=== PATIENT | female | born 1945 | race Caucasian/White ===

== ENCOUNTER 2017-11-28 17:48 | Inpatient (IN) ==
[2017-11-28 18:41] LABS: Basophils # 0.1 K/mcL (0.0-0.2); Basophils % 0.8 %; Eosinophils % 0.5 %; Hematocrit 36.1 % (35.3-44.9); Hemoglobin 11.5 g/dL (11.5-15.4); Immature Granulocytes % 0.3 % (0-4); Lymphocytes # 2.4 K/mcL (0.6-4.6); Lymphocytes % 32.2 %; Mean Corpuscular HGB Conc 31.9 g/dL (31.6-35.5); Mean Corpuscular Hemoglobin 27.8 pg (28.0-33.3); Mean Corpuscular Volume 87.4 fL (83.0-100.0); Mean Platelet Volume 10.9 fL (9.4-12.4); Monocytes # 0.5 K/mcL (0.0-1.3); Monocytes % 7.1 %; Neutrophils # 4.4 K/mcL (1.6-8.9); Platelet Count 362 K/mcL (140-400); Red Blood Count 4.13 M/mcL (3.82-4.97); Red Cell Distribution Width 13.8 % (11.5-14.5); Segmented Neutrophils % 59.1 %
[2017-11-28 19:00] LABS: Albumin 4.2 g/dL (3.5-5.7); Albumin/Globulin Ratio 1.6 (1.1-2.2); Bilirubin,Total 0.5 mg/dL (0.3-1.0); Calcium 10.3 mg/dL (8.6-10.3); Globulin 2.7 g/dL (2.4-3.5); Potassium 3.8 mEq/L (3.5-5.1); Total Protein 6.9 g/dL (6.4-8.9)
[2017-11-28] MEDS ORDERED: MetroNIDAZOLE 500 MG/100 ML 500 MG/100 ML BAG IVPB ONE (20:14)
[2017-11-28] MEDS ORDERED: Levofloxacin 750 MG/150 ML 750 MG/150 ML BAG IVPB ONE (20:14)
--- NOTE | 2017-11-28 20:32 | Emergency Department Note ---
Disposition Clinical Impression: Cellulitis Qualifiers: Site of cellulitis: extremity Site of cellulitis of extremity: lower extremity Laterality: left Qualified Code(s): L03.116 - Cellulitis of left lower limb Disposition: Admitted As Inpatient Condition: Good Referrals: Emiliano Churchill DO [Primary Care Provider] - Forms: ED Satisfaction Letter Time of Disposition: 22:28 General Adult HPI - General Chief complaint: ED Extremity Problem,Nontraumatic Stated complaint: celluitis Left Leg / L foot, sent by PCP Time Seen by Provider: 11/28/17 19:36 Source: patient Limitations: no limitations Nursing Notes Reviewed: Yes Vital Signs Reviewed: Yes - History of Present Illness HPI Narrative: Patient is a 72-year-old female that presents the emergency department with cellulitis the left lower extremity. She was sent here by her primary care provider for admission for IV antibiotics. The patient did have an outpatient CT scan, x-ray and ultrasound the left lower extremity which did not show evidence of DVT or osteomyelitis but did show evidence of possible cellulitis. Patient states that she has been on clindamycin and has failed outpatient therapy. She states that her symptoms of been ongoing for the past 3 weeks and her leg is progressively gotten more swollen and red. Patient states that the leg is somewhat painful at times. She denies any chest pain, shortness of breath abdominal pain, fever chills or any other symptoms at this time. Pain Scale: 0 - Related Data Home Medications Medication Instructions Recorded Confirmed Atorvastatin [Lipitor] 40 mg PO HS 11/28/17 11/28/17 Calcium Carb, Citrate/Vit D3 1 tab PO DAILY 11/28/17 11/28/17 [Calcium + D3 ER Tablet] Cholecalciferol (D-3) [Vitamin D] 2,000 unit PO DAILY 11/28/17 11/28/17 Clindamycin HCl [Clindamycin HCl] 300 mg PO Q6H 11/28/17 11/28/17 Gabapentin [Neurontin] 300 mg PO TID 11/28/17 11/28/17 Losartan Potassium [Cozaar] 100 mg PO DAILY 11/28/17 11/28/17 Mv-Mn/FA/Vit K1/Lycop/Lut/Zeax 1 tab PO DAILY 11/28/17 11/28/17 [Ocuvite Eye + Multi Tablet] Omeprazole [PriLOSEC] 20 mg PO DAILY 11/28/17 11/28/17 Timolol Maleate 0.5% [Timolol 1 drop OP DAILY 11/28/17 11/28/17 Maleate 0.5%] amLODIPine [Norvasc] 5 mg PO DAILY 11/28/17 11/28/17 hydrOXYzine HCl [Hydroxyzine HCl] 25 mg PO Q8H PRN 11/28/17 11/28/17 Allergies Allergy/AdvReac Type Severity Reaction Status Date / Time No Known Allergies Allergy Verified 11/28/17 17:54 All systems ED: reviewed and negative except as stated. Constitutional: Denies: fever, chills Cardiovascular: Denies: chest pain Respiratory: Denies: dyspnea Gastrointestinal: Denies: abdominal pain, nausea, vomiting Genitourinary: Denies: urgency, dysuria, frequency Integumentary: Reports: other (redness of the right lower extremity ) Past Medical History - Past Medical History Medical history: Reports: hyperlipidemia, hypertension Surgical history: Reports: orthopedic, other Psychiatric history: Reports: no psych history - Social History Smoking Status: Never smoker Smokeless Tobacco Status: No Alcohol use: Reports: none Drug use: Reports: none Physical Exam - General Limitations: no limitations General appearance: alert, in no apparent distress - Head Head exam: atraumatic, normocephalic - Eye Eye exam: Present: normal appearance, EOMI - Neck Neck exam: Present: normal inspection, full ROM, trachea midline - Respiratory Respiratory exam: Present: normal lung sounds bilaterally. Absent: respiratory distress, wheezes - Cardiovascular Cardiovascular exam: Present: regular rate, normal rhythm, normal heart sounds, +S1, +S2 - Abdominal Exam Abdominal exam: Present: soft, Non-Tender, normal bowel sounds - Extremities Exam Extremities exam: Present: other (Patient has swelling in bilateral lower extremities however the swelling on the left lower extremity is worse and is erythematous. Patient also states that it is painful to palpation.) - Neurological Exam Neurological exam: Present: alert, oriented X3 - Psychiatric Psychiatric exam: Present: normal affect, normal mood - Skin Skin exam: Present: warm, erythema Course Vital Signs Temperature 98.1 F 11/28/17 17:54 Pulse Rate 97 11/28/17 17:54 Respiratory Rate 20 11/28/17 17:54 Blood Pressure 164/78 11/28/17 17:54 O2 Sat by Pulse Oximetry 98 11/28/17 17:54 Temperature 98.1 F 11/28/17 17:54 Pulse Rate 97 11/28/17 17:54 Respiratory Rate 20 11/28/17 17:54 Blood Pressure 164/78 11/28/17 17:54 O2 Sat by Pulse Oximetry 98 11/28/17 17:54 Oxygen Delivery Oxygen Delivery Room Air Medical Decision Making - MDM Narrative Medical decision making narrative: Due to the patient having a recent CT scan, x-rays and ultrasound the left lower extremity do not feel it is necessary to repeat these as they were just done yesterday. These imaging reports were reviewed. Per radiology read there is not an underlying osseous abnormality but there is evidence of cellulitis. The patient was sent here to the emergency department by her primary care provider for admission to the hospital for antibiotic therapy. We will start the patient on vancomycin, Flagyl and Levaquin. I called and spoke with the hospice noted except the patient their service. The patient will be admitted to the hospital at this time for further evaluation and management. - Lab Data Lab results reviewed: Yes I reviewed the patient's lab results. Result diagrams: 11/28/17 18:30 11/28/17 18:30 Lab Results 11/28/17 11/28/17 Range/Units 18:30 18:30 WBC 7.5 (4.3-11.1) K/mcL RBC 4.13 (3.82-4.97) M/mcL Hgb 11.5 (11.5-15.4) g/dL Hct 36.1 (35.3-44.9) % MCV 87.4 (83.0-100.0) fL MCH 27.8 L (28.0-33.3) pg MCHC 31.9 (31.6-35.5) g/dL RDW 13.8 (11.5-14.5) % Plt Count 362 (140-400) K/mcL MPV 10.9 (9.4-12.4) fL Immature Gran % 0.3 (0-4) % Seg Neutrophils % 59.1 % Lymphocytes % 32.2 % Monocytes % 7.1 % Eosinophils % 0.5 % Basophils % 0.8 % Neutrophils # 4.4 (1.6-8.9) K/mcL Lymphocytes # 2.4 (0.6-4.6) K/mcL Monocytes # 0.5 (0.0-1.3) K/mcL Eosinophils # 0.0 (0.0-0.6) K/mcL Basophils # 0.1 (0.0-0.2) K/mcL Sodium 138 (136-145) mEq/L Potassium 3.8 (3.5-5.1) mEq/L Chloride 102 (98-107) mEq/L Carbon Dioxide 29 (23-29) mEq/L BUN 14 (8-23) mg/dL Creatinine 1.16 (0.60-1.20) mg/dL Est GFR ( Amer) 56 L (> 60) Est GFR (Non-Af Amer) 46 L (> 60) BUN/Creatinine Ratio 12 (6-26) Glucose 195 H (70-105) mg/dL Calculated Osmolality 292 (280-300) Calcium 10.3 (8.6-10.3) mg/dL Total Bilirubin 0.5 (0.3-1.0) mg/dL AST 21 (13-39) Units/L ALT 13 (7-52) Units/L Alkaline Phosphatase 112 H (34-104) Units/L Serum Total Protein 6.9 (6.4-8.9) g/dL Albumin 4.2 (3.5-5.7) g/dL Globulin 2.7 (2.4-3.5) g/dL Albumin/Globulin Ratio 1.6 (1.1-2.2)
--- NOTE | 2017-11-28 20:46 | Emergency Department Note ---
Disposition Clinical Impression: Cellulitis Qualifiers: Site of cellulitis: extremity Site of cellulitis of extremity: lower extremity Laterality: left Qualified Code(s): L03.116 - Cellulitis of left lower limb Disposition: Admitted As Inpatient Referrals: Emiliano Churchill DO [Primary Care Provider] - Forms: ED Satisfaction Letter General Adult HPI - General Chief complaint: ED Extremity Problem,Nontraumatic Stated complaint: celluitis Left Leg / L foot, sent by PCP Time Seen by Provider: 11/28/17 19:36 Source: patient Limitations: no limitations - History of Present Illness Pain Scale: 0 - Related Data Home Medications Medication Instructions Recorded Confirmed Atorvastatin [Lipitor] 40 mg PO HS 11/28/17 11/28/17 Calcium Carb, Citrate/Vit D3 1 tab PO DAILY 11/28/17 11/28/17 [Calcium + D3 ER Tablet] Cholecalciferol (D-3) [Vitamin D] 2,000 unit PO DAILY 11/28/17 11/28/17 Clindamycin HCl [Clindamycin HCl] 300 mg PO Q6H 11/28/17 11/28/17 Gabapentin [Neurontin] 300 mg PO TID 11/28/17 11/28/17 Losartan Potassium [Cozaar] 100 mg PO DAILY 11/28/17 11/28/17 Mv-Mn/FA/Vit K1/Lycop/Lut/Zeax 1 tab PO DAILY 11/28/17 11/28/17 [Ocuvite Eye + Multi Tablet] Omeprazole [PriLOSEC] 20 mg PO DAILY 11/28/17 11/28/17 Timolol Maleate 0.5% [Timolol 1 drop OP DAILY 11/28/17 11/28/17 Maleate 0.5%] amLODIPine [Norvasc] 5 mg PO DAILY 11/28/17 11/28/17 hydrOXYzine HCl [Hydroxyzine HCl] 25 mg PO Q8H PRN 11/28/17 11/28/17 Allergies Allergy/AdvReac Type Severity Reaction Status Date / Time No Known Allergies Allergy Verified 11/28/17 17:54 Constitutional: Denies: fever, chills Cardiovascular: Denies: chest pain Respiratory: Denies: dyspnea Gastrointestinal: Denies: abdominal pain, nausea, vomiting Genitourinary: Denies: urgency, dysuria, frequency Integumentary: Reports: other (redness of the right lower extremity ) Past Medical History - Past Medical History Medical history: Reports: hyperlipidemia, hypertension Surgical history: Reports: orthopedic, other Psychiatric history: Reports: no psych history - Social History Smoking Status: Never smoker Smokeless Tobacco Status: No Alcohol use: Reports: none Drug use: Reports: none Physical Exam - General Limitations: no limitations General appearance: alert, in no apparent distress Course Vital Signs Temperature 98.1 F 11/28/17 17:54 Pulse Rate 97 11/28/17 17:54 Respiratory Rate 20 11/28/17 17:54 Blood Pressure 164/78 11/28/17 17:54 O2 Sat by Pulse Oximetry 98 11/28/17 17:54 Temperature 98.1 F 11/28/17 17:54 Pulse Rate 97 11/28/17 17:54 Respiratory Rate 20 11/28/17 17:54 Blood Pressure 164/78 11/28/17 17:54 O2 Sat by Pulse Oximetry 98 11/28/17 17:54 Oxygen Delivery Oxygen Delivery Room Air Medical Decision Making - Lab Data Result diagrams: 11/28/17 18:30 11/28/17 18:30 Lab Results 11/28/17 11/28/17 Range/Units 18:30 18:30 WBC 7.5 (4.3-11.1) K/mcL RBC 4.13 (3.82-4.97) M/mcL Hgb 11.5 (11.5-15.4) g/dL Hct 36.1 (35.3-44.9) % MCV 87.4 (83.0-100.0) fL MCH 27.8 L (28.0-33.3) pg MCHC 31.9 (31.6-35.5) g/dL RDW 13.8 (11.5-14.5) % Plt Count 362 (140-400) K/mcL MPV 10.9 (9.4-12.4) fL Immature Gran % 0.3 (0-4) % Seg Neutrophils % 59.1 % Lymphocytes % 32.2 % Monocytes % 7.1 % Eosinophils % 0.5 % Basophils % 0.8 % Neutrophils # 4.4 (1.6-8.9) K/mcL Lymphocytes # 2.4 (0.6-4.6) K/mcL Monocytes # 0.5 (0.0-1.3) K/mcL Eosinophils # 0.0 (0.0-0.6) K/mcL Basophils # 0.1 (0.0-0.2) K/mcL Sodium 138 (136-145) mEq/L Potassium 3.8 (3.5-5.1) mEq/L Chloride 102 (98-107) mEq/L Carbon Dioxide 29 (23-29) mEq/L BUN 14 (8-23) mg/dL Creatinine 1.16 (0.60-1.20) mg/dL Est GFR ( Amer) 56 L (> 60) Est GFR (Non-Af Amer) 46 L (> 60) BUN/Creatinine Ratio 12 (6-26) Glucose 195 H (70-105) mg/dL Calculated Osmolality 292 (280-300) Calcium 10.3 (8.6-10.3) mg/dL Total Bilirubin 0.5 (0.3-1.0) mg/dL AST 21 (13-39) Units/L ALT 13 (7-52) Units/L Alkaline Phosphatase 112 H (34-104) Units/L Serum Total Protein 6.9 (6.4-8.9) g/dL Albumin 4.2 (3.5-5.7) g/dL Globulin 2.7 (2.4-3.5) g/dL Albumin/Globulin Ratio 1.6 (1.1-2.2) Attestation Statement - Attestation Attestation: I examined this patient and my medical decision-making was reviewed with the Resident Physician. I agree with the documented findings, disposition and treatment plan as described except to the extent set forth below. 72 year old female prsentse to the Ed with complants of left foot cellulitis and had an outpatinet Ct/US/XR of her left foot which confirms diangosis and has failed outpatinet therapy for clinda. We terri admit to medicine
[2017-11-29] MEDS ORDERED: Naloxone 0.4 MG/ML INJ IVP PRN (05:13)
[2017-11-29] MEDS ORDERED: Acetaminophen 325 MG TABLET PO PRN (05:13)
[2017-11-29] MEDS ORDERED: hydrOXYzine pamoate 25 MG CAPSULE PO PRN (05:21)
--- NOTE | 2017-11-29 06:22 | Internal Med History&Physical ---
Date of Encounter: 11/29/17 Time of Encounter: 04:00 Internal Medicine - H&P: HPI Chief complaint: Left leg swelling Admitted From: Home Plans for Post Hospital Care: Home History of present illness: Ms. Smith is a 72 year old female present to ER for left leg swelling for 3 weeks. Past medical history is significant for hypertension, hyperlipidemia, chronic back pain. Patient said she has left lower leg swelling and the pain for 3 weeks. Patient had Doppler venous test on November 20, which shows negative for DVT. Later she also had CT of left lower leg, shows generalized swelling consider cellulitis. Patient was treated with clindamycin by mouth as outpatient. The swelling and pain does not improve after treatment. Patient denies numbness. The patient denies a fever. Patient denies history of surgery or injury. Patient denies shortness of breath or chest pain. She has no recent travel or immobilization. Patient was admitted as cellulitis failed outpatient treatment. Past Med Surg Social Fam HX - Past Medical History Medical history: hyperlipidemia, hypertension Psychiatric history: no psych history - Past Surgical History Surgical History: orthopedic, other - Social History Smoking Status: Never smoker Smokeless Tobacco Status: No Alcohol use: none Drug use: none - Family History Mother Living Status: Hx Family Neurologic Disorders: Yes (alzheimers) Internal Medicine - H&P: Meds Atorvastatin [Lipitor] 40 mg PO HS 11/28/17 [History] Calcium Carb, Citrate/Vit D3 [Calcium + D3 ER Tablet] 1 tab PO DAILY 11/28/17 [ History] Cholecalciferol (D-3) [Vitamin D] 2,000 unit PO DAILY 11/28/17 [History] Clindamycin HCl [Clindamycin HCl] 300 mg PO Q6H 11/28/17 [History] Gabapentin [Neurontin] 300 mg PO TID 11/28/17 [History] Losartan Potassium [Cozaar] 100 mg PO DAILY 11/28/17 [History] Mv-Mn/FA/Vit K1/Lycop/Lut/Zeax [Ocuvite Eye + Multi Tablet] 1 tab PO DAILY 11/28 [History] Omeprazole [PriLOSEC] 20 mg PO DAILY 11/28/17 [History] Timolol Maleate 0.5% [Timolol Maleate 0.5%] 1 drop OP DAILY 11/28/17 [History] amLODIPine [Norvasc] 5 mg PO DAILY 11/28/17 [History] hydrOXYzine HCl [Hydroxyzine HCl] 25 mg PO Q8H PRN 11/28/17 [History] 3 Allergy/AdvReac Type Severity Reaction Status Date / Time No Known Allergies Allergy Verified 11/28/17 17:54 All Systems PM: A 10-system review of systems was performed and is negative for pertinent findings except as documented above in the HPI. - Constitutional Vitals: Temp Pulse Resp BP Pulse Ox 98.0 F 88 16 148/76 94 11/29/17 01:06 11/29/17 01:06 11/29/17 01:06 11/29/17 01:06 11/29/17 01:06 General appearance: Present: A&O X 3, no acute distress, answers questions appropriately - Head Head exam: Present: atraumatic, normocephalic - Eye Eye exam: Present: PERRL, conjuntiva pink, sclera anicteric Pupils: Present: PERRL - Neck Neck exam general surgery: Present: supple, trachea midline. Absent: lymphadenopathy - Respiratory Respiratory exam: Present: CTAB. Absent: accessory muscle use, rales, rhonchi, wheezes - Cardiovascular Cardiovascular exam: Present: RRR, +S1, +S2. Absent: diastolic murmur, gallop, rubs, systolic murmur - GI/Abdominal GI/Abdominal exam: Present: normal bowel sounds, soft, no peritoneal signs. Absent: distended, tenderness - Extremities Exam Extremities exam: Present: pedal edema (Left lower leg swelling with tenderness. No skin redness or warmth), warm, radial pulses palpable and symmetrical. Absent: calf tenderness, cyanotic - Neurological Exam Neurological exam: Present: CN II-XII intact, oriented X3, no focal deficits. Absent: pronater drift, facial droop, speech deficit - Skin Skin exam: Present: dry, intact Internal Med - H&P Results - Labs CBC & Chem 7: 11/28/17 18:30 11/28/17 18:30 - Assessment and plan (1) Edema of left lower extremity Current Visit: Yes Status: Acute Assessment and plan: Etiology is undetermined. Patient had DVT test on November 20, which is negative. Will further repeated DVT exam. Patient is on amlodipine, which may account for peripheral edema but usually it is bilateral. - We will elevate left leg - Hold amlodipine - Treat as cellulitis at this point - Repeat Doppler venous of left lower extremity (2) Hypertension Current Visit: Yes Status: Acute Assessment and plan: Continue home medications. Hold amlodipine Qualifiers: Hypertension type: essential hypertension Qualified Code(s): I10 - Essential (primary) hypertension (3) Hyperlipidemia Current Visit: Yes Status: Acute Assessment and plan: Continue home medications Qualifiers: Hyperlipidemia type: pure hypercholesterolemia Qualified Code(s): E78.00 - Pure hypercholesterolemia, unspecified; E78.0 - Pure hypercholesterolemia (4) DVT prophylaxis Current Visit: Yes Status: Acute Assessment and plan: Heparin subcutaneously (5) Cellulitis Current Visit: Yes Status: Acute Assessment and plan: CT shows cellulitis. Patient failed by mouth clindamycin treatment. Will place patient on Vanco and Rocephin. Qualifiers: Site of cellulitis: extremity Site of cellulitis of extremity: lower extremity Laterality: left Qualified Code(s): L03.116 - Cellulitis of left lower limb - Time Spent With Patient Total time spent is greater than 50% in coordination of care (as documented) at patient's floor/unit and/or counseling patient: 40 minutes Greater than 35 minutes
[2017-11-29] MEDS ORDERED: (Calcium Carb, Citrate/Vit D3 [Calcium + D3 Er Tablet) PO SCH (09:00)
[2017-11-29] MEDS: Cholecalciferol (D-3) 1,000 UNIT TABLET PO SCH (09:19)
[2017-11-29] MEDS: Gabapentin 300 MG CAPSULE PO SCH ×3 (09:19→21:14)
[2017-11-29] MEDS: Multivit/Ca/Min/Fe/FA 1 TAB TABLET PO SCH (09:20)
[2017-11-29] MEDS: cefTRIAXone 1,000 MG in Water for inj. (sterile) 20 ML 10 ML IVP SCH (09:20)
[2017-11-29] MEDS: *HR* Heparin 5,000 UNIT/ML VIAL SQ SCH ×2 (09:21→17:35)
--- NOTE | 2017-11-29 13:48 | Infectious Disease Consult ---
Date of Encounter: 11/29/17 Time of Encounter: 13:41 Assessment and Plan (1) Cellulitis Status: Acute Assessment and plan: Location: LLE. Causative organism: Unclear. Non-purulent. Etiology unclear. The patient did have a fall about three days prior to the onset of her symptoms, but denies any traumatic injury to the skin. She does not appear to have any tinea pedis or venous stasis dermatitis. She does have a remote history of left knee TKA, but does not have any knee pain and the joint does not appear to be effected. CT scan of the LLE completed 11/27/17 showed extensive non-specific subcutaneous edema, most pronounced at the level of the ankle and foot, without an organized drainable fluid collection or acute osseous abnormality. DVT study completed 11/20/17 was negative. No SIRS criteria. Clinically improved per patient report. Continue Vancomycin IV. Pharmacy to dose. Goal trough ~15. Continue Rocephin 2 grams IV daily. Start probiotics. Duration of treatment depends on the clinical picture, but likely 7-10 days, depending on patient response. Will likely be able to transition to PO Bactrim and Levaquin when ready for discharge. Monitor renal function and for drug toxicity and dose-adjust antibiotics. Qualifiers: Site of cellulitis: extremity Site of cellulitis of extremity: lower extremity Laterality: left Qualified Code(s): L03.116 - Cellulitis of left lower limb (2) Hypertension Status: Chronic Qualifiers: Hypertension type: essential hypertension Qualified Code(s): I10 - Essential (primary) hypertension (3) Hyperlipidemia Status: Chronic Qualifiers: Hyperlipidemia type: pure hypercholesterolemia Qualified Code(s): E78.00 - Pure hypercholesterolemia, unspecified; E78.0 - Pure hypercholesterolemia Infectious Disease HPI - Data of Consult Patient: new to practice Consult date: 11/29/17 Requesting Physician: Latha Hodge CNP Primary Care Provider: Emiliano Churchill DO - Consult Narrative Reason for consult: LLE cellulitis History of present illness: Ms. Smith is a 72 year old female with past medical history of hypertension, hyperlipidemia, chronic back pain, and anxiety with remote history of left TKA 3 years ago and right TKA 1 year ago. The patient was noted to the hospital November 28 for left lower extremity cellulitis. We are consulted November 29 for antibiotic recommendations or left lower extremity cellulitis. Briefly, the patient's a 72-year-old female with past medical history as stated above. The patient presented to the hospital with a complaint of 3 weeks of redness, swelling, and pain in the left lower extremity. She states she fell on a and started having symptoms on the following Monday or Monday. She denies any known cuts or scrapes or additional trauma to the affected area. She was seen by her primary care provider on November 20 and had a DVT study that was negative. At that time, she was started on oral clindamycin. She states she was seen for a follow-up on November 24 and thought that her leg was doing a little bit better, but her PCP did not feel that way. She had x-rays of the foot and ankle that showed no acute fractures, but did show nonspecific lucencies within the first metatarsal and calcaneus. He then had a CT scan of the left lower extremity that showed extensive nonspecific subcutaneous edema most pronounced at the level of the ankle and foot without organized drainable fluid collection and no acute osseous abnormality. She was seen by her primary care provider again on Monday and instructed to come to the emergency room for evaluation. Upon arrival, the patient was afebrile. She was mildly tachycardic , but was otherwise hemodynamically stable. Laboratory studies revealed a normal white blood cell count. There was no repeat imaging completed. She was started empirically on vancomycin, Flagyl, and Levaquin and admitted to the hospital for further evaluation. Since admission, the patient has remained afebrile hemodynamically stable. Her antibiotics were switched to vancomycin and Rocephin by the primary team. We have been asked to evaluate and make further recommendations. During my exam today, the patient endorses a history as stated above. She states that she thinks that her leg looks about 50% better and is much less painful. The patient reports that the redness and swelling went from her toes to her mid calf. She denies any fevers or chills or rigors. She denies any congestion, earache, or sore throat. She denies any headache or neck pain or dizziness. She denies any chest pain, shortness of breath, or cough. She denies any nausea, vomiting, diarrhea, or constipation. She denies any abdominal pain, urinary complaints, or appetite changes. She reports chronic lower back pain that has been at baseline. She denies pain except as previously mentioned. She denies any traumatic injuries to the skin that she is aware of. She does have hardware in the left foot and in the bilateral knees from previous surgeries. She denies any oral thrush or new skin lesions. Patient lives at home with her and daughter. She is retired from the hospital. She denies any tobacco, alcohol, or illicit drug use. She denies any recent travel. She denies any exposure to animals. She denies any prolonged exposure to water except for bathing. CC: Latha Hodge, [place] Past Med Surg Social Fam HX - Past Medical History Attestation: Yes The following information was validated with the patient. Source: patient, old records reviewed, nursing notes reviewed Medical history: GERD, hyperlipidemia, hypertension, other (chronic back pain) Psychiatric history: no psych history - Past Surgical History Surgical History: orthopedic, other (Left knee 2014, Right knee 2017, Left foot ORIF) - Social History Smoking Status: Never smoker Smokeless Tobacco Status: No Alcohol use: none Drug use: none Occupational status: retired Current living situation: Home, With Family Activity Level: Independent ambulation Recent Out of Country Travel Within the Last 8 Weeks: No Exposure or Possible Exposure to Illness During Travel: No - Family History Mother Living Status: Hx Family Neurologic Disorders: Yes (alzheimers) Infectious Disease-CN:Meds Atorvastatin [Lipitor] 40 mg PO HS 11/28/17 [History] Calcium Carb, Citrate/Vit D3 [Calcium + D3 ER Tablet] 1 tab PO DAILY 11/28/17 [ History] Cholecalciferol (D-3) [Vitamin D] 2,000 unit PO DAILY 11/28/17 [History] Clindamycin HCl [Clindamycin HCl] 300 mg PO Q6H 11/28/17 [History] Gabapentin [Neurontin] 300 mg PO TID 11/28/17 [History] Losartan Potassium [Cozaar] 100 mg PO DAILY 11/28/17 [History] Mv-Mn/FA/Vit K1/Lycop/Lut/Zeax [Ocuvite Eye + Multi Tablet] 1 tab PO DAILY 11/28 [History] Omeprazole [PriLOSEC] 20 mg PO DAILY 11/28/17 [History] Timolol Maleate 0.5% [Timolol Maleate 0.5%] 1 drop OP DAILY 11/28/17 [History] amLODIPine [Norvasc] 5 mg PO DAILY 11/28/17 [History] hydrOXYzine HCl [Hydroxyzine HCl] 25 mg PO Q8H PRN 11/28/17 [History] 3 Allergy/AdvReac Type Severity Reaction Status Date / Time No Known Allergies Allergy Verified 11/28/17 17:54 All systems: reviewed and no additional remarkable complaints except as stated Exam - Constitutional Vitals: Temp Pulse Resp BP Pulse Ox 97.6 F 92 16 157/82 96 11/29/17 11:00 11/29/17 11:00 11/29/17 11:00 11/29/17 11:00 11/29/17 11:00 General appearance: average body habitus, cooperative, no acute distress - Head Head exam: Present: atraumatic, normal inspection, normocephalic - Eye Eye exam: Present: EOMI, normal appearance, PERRL Pupils: Present: normal accommodation - ENT ENT exam: Present: mucous membranes moist - Neck Neck exam: Present: normal inspection - Respiratory Respiratory exam: Present: CTAB. Absent: rales, respiratory distress, rhonchi, wheezes - Cardiovascular Cardiovascular exam: Present: RRR, +S1, +S2 - GI/Abdominal GI/Abdominal exam: Present: normal bowel sounds, soft. Absent: distended, tenderness - Extremities Exam Extremities exam: Present: joint swelling (Left ankle), pedal edema (1+ LLE, non -pitting), tenderness (Left calf/ankle/foot). Absent: normal inspection (Mild erythema noted to the lower portion of the LLE from mid-calf to the midfoot. Sparing of all five toes noted. No open wounds noted. ) - Neurological Exam Neurological exam: Present: alert, oriented X3, no focal deficits - Psychiatric Psychiatric exam: Present: normal affect, normal mood - Skin Skin exam: Present: dry, intact, normal color, warm Infectious Disease CN: Results - Labs CBC & Chem 7: 11/30/17 03:54 11/30/17 03:54 Consult Discharge Plan - Plan Referrals: Emiliano Churchill DO [Primary Care Provider] - - Attending Attestation I examined this patient and my medical decision-making was reviewed with the Resident Physician. I agree with the documented findings, disposition and treatment plan as described except to the extent set forth below. This is an addendum to original report dictated by Hiral Bob CNP. Please refer to Bibi clark for full detail. Patient is 72-year-old woman with past medical history mentioned below who apparently came in with cellulitis of the left lower extremity. Details of cellulitis on mentioned in the history of present illness below. Patient was treated as an outpatient with no resolution. Patient had no other causative she will symptoms. Patient was admitted started on IV antibiotics including vancomycin and Rocephin and clinically is doing much better. On review of system today patient tells me that she feels great and has no complaints. Patient states that her leg looks so much better since she came in. On physical exam I appreciate an oral thrush but other than that there is some edema of the left lower extremity with no real erythema or warmth to touch. At this point patient is on broad-spectrum antibiotics I did discuss with the hospitalist team, was patient is to be discharge May discharged on Bactrim orally to finish a 10 day course total.
[2017-11-29] MEDS: Lactobacillus 1 EACH CAP.SPRINK PO SCH (15:05)
--- NOTE | 2017-11-29 18:47 | Internal Med Progress Note ---
Date of Encounter: 11/29/17 Time of Encounter: 18:44 - Assessment and plan (1) Cellulitis Current Visit: Yes Status: Acute Assessment and plan: CT shows cellulitis. Patient failed by mouth clindamycin treatment as outpatient. Infectious disease consult it and recommend discharging home tomorrow on Bactrim DS twice a day and Cipro 500 mg by mouth twice a day for 10 days total. Continue on Vanco and Rocephin overnight. Qualifiers: Site of cellulitis: extremity Site of cellulitis of extremity: lower extremity Laterality: left Qualified Code(s): L03.116 - Cellulitis of left lower limb (2) Edema of left lower extremity Current Visit: Yes Status: Acute Assessment and plan: Etiology is undetermined. Patient had Doppler study on November 20, which was negative for DVT. Repeat Doppler study is pending. Patient is on amlodipine, which may account for peripheral edema but usually it is bilateral. - elevate left leg - Hold amlodipine - Treat as cellulitis - Repeat Doppler venous of left lower extremity (3) Hypertension Current Visit: Yes Status: Chronic Assessment and plan: Continue home medications. Hold amlodipine Blood pressure is stable Qualifiers: Hypertension type: essential hypertension Qualified Code(s): I10 - Essential (primary) hypertension (4) Hyperlipidemia Current Visit: Yes Status: Chronic Assessment and plan: Continue statin Qualifiers: Hyperlipidemia type: pure hypercholesterolemia Qualified Code(s): E78.00 - Pure hypercholesterolemia, unspecified; E78.0 - Pure hypercholesterolemia (5) DVT prophylaxis Current Visit: Yes Status: Acute Assessment and plan: Heparin subcut - Time Spent With Patient Total time spent is greater than 50% in coordination of care (as documented) at patient's floor/unit and/or counseling patient: - Subjective Interval history: Patient is up in the room with a steady gait. She has no complaints at this time, denies fever chills chest pain or shortness of breath. She does state that her ankle hurts with palpation. - Constitutional Vitals: Temp Pulse Resp BP Pulse Ox 97.8 F 74 14 151/72 97 11/29/17 15:13 11/29/17 15:13 11/29/17 15:13 11/29/17 15:13 11/29/17 15:13 General appearance: Present: cooperative, A&O X 3, pleasant, no acute distress, answers questions appropriately - Head Head exam: Present: atraumatic, normocephalic - Eye Eye exam: Present: PERRL, conjuntiva pink, sclera anicteric Pupils: Present: PERRL - Neck Neck exam general surgery: Present: supple, trachea midline. Absent: lymphadenopathy - Respiratory Respiratory exam: Present: CTAB. Absent: accessory muscle use, rales, rhonchi, wheezes - Cardiovascular Cardiovascular exam: Present: RRR, +S1, +S2. Absent: diastolic murmur, gallop, rubs, systolic murmur - GI/Abdominal GI/Abdominal exam: Present: normal bowel sounds, soft, no peritoneal signs. Absent: distended, tenderness - Extremities Exam Extremities exam: Present: pedal edema, warm, radial pulses palpable and symmetrical. Absent: calf tenderness, cyanotic - Neurological Exam Neurological exam: Present: CN II-XII intact, oriented X3, no focal deficits. Absent: pronater drift, facial droop, speech deficit - Skin Skin exam: Present: dry, intact, normal color, warm Additional comments: Left lower extremity from the knee down is slightly red and warm to touch no open areas noted. Pulses are present Internal Medicine: Result - Labs CBC & Chem 7: 11/28/17 18:30 11/28/17 18:30 Consult Discharge Plan - Plan Referrals: Emiliano Churchill DO [Primary Care Provider] -
[2017-11-30] MEDS: *HR* Heparin 5,000 UNIT/ML VIAL SQ SCH ×2 (00:18→05:29)
[2017-11-30 04:59] LABS: Basophils % 0.5 %; Eosinophils # 0.1 K/mcL (0.0-0.6); Eosinophils % 0.8 %; Hematocrit 33.9 % (35.3-44.9); Hemoglobin 10.6 g/dL (11.5-15.4); Immature Granulocytes % 0.5 % (0-4); Lymphocytes # 2.6 K/mcL (0.6-4.6); Lymphocytes % 35.3 %; Mean Corpuscular HGB Conc 31.3 g/dL (31.6-35.5); Mean Corpuscular Hemoglobin 27.8 pg (28.0-33.3); Mean Platelet Volume 11.5 fL (9.4-12.4); Monocytes # 0.7 K/mcL (0.0-1.3); Monocytes % 9.2 %; Neutrophils # 3.9 K/mcL (1.6-8.9); Platelet Count 351 K/mcL (140-400); Red Blood Count 3.81 M/mcL (3.82-4.97); Red Cell Distribution Width 14.2 % (11.5-14.5); Segmented Neutrophils % 53.7 %
[2017-11-30 05:16] LABS: BUN/Creatinine Ratio 14 (6-26); Blood Urea Nitrogen 14 mg/dL (8-23); Calcium 9.1 mg/dL (8.6-10.3); Carbon Dioxide 26 mEq/L (23-29); Chloride 109 mEq/L (98-107); Glucose 91 mg/dL (70-105); Magnesium 1.8 mg/dL (1.6-2.6); Osmolality,Calculated 296 (280-300); Potassium 3.6 mEq/L (3.5-5.1); Sodium 143 mEq/L (136-145); eGFR For African Americans > 60 (> 60); eGFR For Non-African Americans 53 (> 60)
[2017-11-30] MEDS: Gabapentin 300 MG CAPSULE PO SCH (08:49)
[2017-11-30] MEDS: Lactobacillus 1 EACH CAP.SPRINK PO SCH (08:49)
[2017-11-30] MEDS: Multivit/Ca/Min/Fe/FA 1 TAB TABLET PO SCH (08:50)
[2017-11-30] MEDS: Cholecalciferol (D-3) 1,000 UNIT TABLET PO SCH (08:50)
[2017-11-30] MEDS: cefTRIAXone 1,000 MG in Water for inj. (sterile) 20 ML 10 ML IVP SCH (08:51)
--- NOTE | 2017-11-30 10:35 | Discharge Summary ---
- NOTES TO OUTPATIENT PROVIDER Notes to Outpatient Provider: F/U with PCP in one week. Discharged on 10 day course of Bactrim DS and Cipro 500 twice a day Date of Encounter: 11/30/17 Time of Encounter: 10:31 - Discharge Diagnosis (1) Cellulitis Priority: Primary Status: Acute Qualifiers: Site of cellulitis: extremity Site of cellulitis of extremity: lower extremity Laterality: left Qualified Code(s): L03.116 - Cellulitis of left lower limb (2) Edema of left lower extremity Priority: Primary Status: Acute (3) Hypertension Priority: Primary Status: Chronic Qualifiers: Hypertension type: essential hypertension Qualified Code(s): I10 - Essential (primary) hypertension (4) Hyperlipidemia Priority: Primary Status: Chronic Qualifiers: Hyperlipidemia type: pure hypercholesterolemia Qualified Code(s): E78.00 - Pure hypercholesterolemia, unspecified; E78.0 - Pure hypercholesterolemia Hospital course: Ms. Smith is a 72 year old female who presented to the ER with 3 weeks of left leg swelling. She had been treated as an outpatient with clindamycin for cellulitis. She also had a Doppler venous study on November 20 was was negative for DVT. Repeat bilateral Doppler exam was negative for DVT on this admission. Infectious disease was consulted and made recommendations for antibiotics on discharge. She will be sent home on Bactrim DS twice a day and Cipro 500 twice a day to complete a 10 day course. She has no white count, no fever and no symptoms of infection. Leg swelling is much improved and redness and tenderness are markedly decreased. Discharge discussed with: patient, nurse, oncology consultant - Time Spent with Patient Total time spent providing and/or coordinating discharge services: Less than 30 minutes - Discharge Medications Prescriptions: Ciprofloxacin HCl [Cipro] 500 mg PO BID 10 Days #20 tablet Sulfamethoxazole/Trimeth DS [Bactrim DS] 1 each PO BID 10 Days #20 tablet Home Medications: Atorvastatin [Lipitor] 40 mg PO HS 11/28/17 [History] Calcium Carb, Citrate/Vit D3 [Calcium + D3 ER Tablet] 1 tab PO DAILY 11/28/17 [ History] Cholecalciferol (D-3) [Vitamin D] 2,000 unit PO DAILY 11/28/17 [History] Clindamycin HCl 300 mg PO Q6H 11/28/17 [History] Gabapentin [Neurontin] 300 mg PO TID 11/28/17 [History] Losartan Potassium [Cozaar] 100 mg PO DAILY 11/28/17 [History] Mv-Mn/FA/Vit K1/Lycop/Lut/Zeax [Ocuvite Eye + Multi Tablet] 1 tab PO DAILY 11/28 [History] Omeprazole [PriLOSEC] 20 mg PO DAILY 11/28/17 [History] Timolol Maleate 0.5% 1 drop OP DAILY 11/28/17 [History] amLODIPine [Norvasc] 5 mg PO DAILY 11/28/17 [History] hydrOXYzine HCl [Hydroxyzine HCl] 25 mg PO Q8H PRN 11/28/17 [History] Ciprofloxacin HCl [Cipro] 500 mg PO BID 10 Days #20 tablet 11/30/17 [Rx] Sulfamethoxazole/Trimeth DS [Bactrim DS] 1 each PO BID 10 Days #20 tablet [Rx] Allergies/Adverse Reactions: 3 Allergy/AdvReac Type Severity Reaction Status Date / Time No Known Allergies Allergy Verified 11/28/17 17:54 Date of admission: 11/29/17 05:13 Primary care physician: Emiliano Churchill DO Consults: 11/29/17 09:44 Consult to Infectious Diseases [CONS] Routine Consulting Provider: Infectious Disease Rosa Reason for Consult: cellulits failed outpatient treatment Time Notified: 09:45 Call Completed: Yes Discharging clinician: Addis Whitney Anticipated date of discharge: 11/30/17 - Constitutional Vitals: Temp Pulse Resp BP Pulse Ox 97.9 F 78 15 144/85 91 11/30/17 06:59 11/30/17 06:59 11/30/17 06:59 11/30/17 06:59 11/30/17 06:59 General appearance: Present: cooperative, A&O X 3, pleasant, no acute distress, answers questions appropriately - Head Head exam: Present: atraumatic, normocephalic - Eye Eye exam: Present: PERRL, conjuntiva pink, sclera anicteric Pupils: Present: PERRL - Neck Neck exam general surgery: Present: supple, trachea midline. Absent: lymphadenopathy - Respiratory Respiratory exam: Present: CTAB. Absent: accessory muscle use, rales, rhonchi, wheezes - Cardiovascular Cardiovascular exam: Present: RRR, +S1, +S2. Absent: diastolic murmur, gallop, rubs, systolic murmur - GI/Abdominal GI/Abdominal exam: Present: normal bowel sounds, soft, no peritoneal signs. Absent: distended, tenderness - Extremities Exam Extremities exam: Present: pedal edema, warm, radial pulses palpable and symmetrical. Absent: calf tenderness, cyanotic Additional comments: Trace pedal edema bilaterally and redness and soreness markedly decreased from exam yesterday. No open areas noted. Good pulses bilaterally - Neurological Exam Neurological exam: Present: CN II-XII intact, oriented X3, no focal deficits. Absent: pronater drift, facial droop, speech deficit - Skin Skin exam: Present: dry, intact, normal color, warm - Patient Status Disposition: Home, Self-Care Condition: Good Functional capacity at discharge: independent ambulation Overall status at discharge: patient is progressing back to baseline - Discharge Instructions Follow Up With: Emiliano Churchill DO [Primary Care Provider] - - Diet and Activity Activity: resume usual activities as tolerated Diet: advance to your usual diet, low fat, low cholesterol
[2017-11-30 10:53] VITALS: BP 159/81
--- NOTE | 2017-11-30 11:48 | Infectious Disease Progress No ---
Date of Encounter: 11/30/17 Time of Encounter: 11:00 - Assessment and Plan (1) Cellulitis Status: Acute Location: LLE. Causative organism: Unclear. Non-purulent. Etiology unclear. The patient did have a fall about three days prior to the onset of her symptoms, but denies any traumatic injury to the skin. She does not appear to have any tinea pedis or venous stasis dermatitis. She does have a remote history of left knee TKA, but does not have any knee pain and the joint does not appear to be effected. CT scan of the LLE completed 11/27/17 showed extensive non-specific subcutaneous edema, most pronounced at the level of the ankle and foot, without an organized drainable fluid collection or acute osseous abnormality. DVT study completed 11/20/17 was negative. No SIRS criteria. Clinically improved per patient report. Continue Vancomycin IV. Pharmacy to dose. Goal trough ~15. Continue Rocephin 2 grams IV daily. Continue probiotics. Duration of treatment depends on the clinical picture, but likely 7-10 days, depending on patient response. Will likely be able to transition to PO Bactrim and Cipro when ready for discharge. Monitor renal function and for drug toxicity and dose-adjust antibiotics. Qualifiers: Site of cellulitis: extremity Site of cellulitis of extremity: lower extremity Laterality: left Qualified Code(s): L03.116 - Cellulitis of left lower limb (2) Hypertension Status: Chronic Qualifiers: Hypertension type: essential hypertension Qualified Code(s): I10 - Essential (primary) hypertension (3) Hyperlipidemia Status: Chronic Qualifiers: Hyperlipidemia type: pure hypercholesterolemia Qualified Code(s): E78.00 - Pure hypercholesterolemia, unspecified; E78.0 - Pure hypercholesterolemia - Subjective Interval history: Patient seen and examined. No acute events noted overnight. Patient states her LLE cellulitis continues to improve. Denies fevers, chills, or rigors. Denies chest pain, shortness of breath, or cough. Denies nausea, vomiting, or diarrhea. Denies abdominal pain or urinary complaints. Denies oral thrush or new skin lesions. States pain, swelling, and redness in the LLE are 90% better. Infect Dis PN-Objective Data - Labs CBC & Chem 7: 11/30/17 03:54 11/30/17 03:54 Labs: Laboratory Results - last 24 hr 11/30/17 11/30/17 03:54 03:54 WBC 7.3 RBC 3.81 L Hgb 10.6 L Hct 33.9 L MCV 89.0 MCH 27.8 L MCHC 31.3 L RDW 14.2 Plt Count 351 MPV 11.5 Immature Gran % 0.5 Seg Neutrophils % 53.7 Lymphocytes % 35.3 Monocytes % 9.2 Eosinophils % 0.8 Basophils % 0.5 Neutrophils # 3.9 Lymphocytes # 2.6 Monocytes # 0.7 Eosinophils # 0.1 Basophils # 0.0 Sodium 143 Potassium 3.6 Chloride 109 H Carbon Dioxide 26 BUN 14 Creatinine 1.03 Est GFR ( Amer) > 60 Est GFR (Non-Af Amer) 53 L BUN/Creatinine Ratio 14 Glucose 91 Calculated Osmolality 296 Calcium 9.1 Magnesium 1.8 Exam - Constitutional Vitals: Temp Pulse Resp BP Pulse Ox 97.8 F 85 14 159/81 94 11/30/17 10:51 11/30/17 10:51 11/30/17 10:51 11/30/17 10:51 11/30/17 10:51 General appearance: average body habitus, cooperative, no acute distress - Head Head exam: Present: atraumatic, normal inspection, normocephalic - Eye Eye exam: Present: EOMI, normal appearance, PERRL Pupils: Present: normal accommodation - ENT ENT exam: Present: mucous membranes moist - Neck Neck exam: Present: normal inspection - Respiratory Respiratory exam: Present: CTAB. Absent: rales, respiratory distress, rhonchi, wheezes - Cardiovascular Cardiovascular exam: Present: RRR, +S1, +S2 - GI/Abdominal GI/Abdominal exam: Present: normal bowel sounds, soft. Absent: distended, tenderness - Extremities Exam Extremities exam: Present: joint swelling (Trace left ankle), pedal edema ( Trace LLE). Absent: tenderness Additional comments: Trace erythema. Warmth resolved. - Neurological Exam Neurological exam: Present: alert, oriented X3, no focal deficits - Psychiatric Psychiatric exam: Present: normal affect, normal mood - Skin Skin exam: Present: dry, intact, normal color, warm Consult Discharge Plan - Plan Instructions: Ciprofloxacin (By mouth), Sulfamethoxazole/Trimethoprim (By mouth ), Cellulitis (DC), Chronic Hypertension (DC) Referrals: Emiliano Churchill DO [Primary Care Provider] - 12/04/17 11:30 am Prescriptions: Ciprofloxacin HCl [Cipro] 500 mg PO BID 10 Days #20 tablet Sulfamethoxazole/Trimeth DS [Bactrim DS] 1 each PO BID 10 Days #20 tablet - Attending Attestation I examined this patient and my medical decision-making was reviewed with the Resident Physician. I agree with the documented findings, disposition and treatment plan as described except to the extent set forth below.
[2017-11-30] MEDS ORDERED: Aminoglycoside Consult 1 EACH MC ONE (12:01)
== END 2017-11-30 12:02 | disposition home or self-care (01) | DRG 603 ==
LOC: 3BNU 17:48 → EMEROO 17:48 → 3BNU 23:34
PROVIDERS: ADMIT Internal Medicine; ATTEND Registered Nurse